=== PATIENT | female | born 1990 | race Caucasian/White ===

== ENCOUNTER → 2018-09-26 | Outpatient (CLI) | payer OTHER ==
[~2018-09-26] MED LIST: DOCU5LIQ PO; IBUP80TA PO; MAPA500T17 PO; MOM30SS PO; PRENTAB74 PO
--- NOTE | 2018-09-26 10:00 | REP ---
RIGHT ANKLE, FOUR VIEWS: Four views of the right ankle are performed. There is no acute fracture or dislocation. The ankle mortise is anatomic with no narrowing at the tibiotalar joint. A tiny spur is seen in the medial malleolus. There is mild posterior and inferior calcaneal spurring. IMPRESSION: Mild spurring as above. No acute abnormalities. Electronically Signed by Eric Burden MD 09/27/2018 10:37 A
== END ==
LOC: M WUC 09:18
PROVIDERS: ATTEND Physician Assistant
DX: M77.31 Calcaneal spur, right foot (principal)

== ENCOUNTER → 2020-02-17 | Outpatient (CLI) | payer OTHER ==
[~2020-02-17] MED LIST changes: +NEXP1IMP SC; +OMEP40CA97 PO
== END ==
LOC: M LABSMTC 08:24
PROVIDERS: ATTEND Anesthesiology
DX: Z01.818 Encounter for other preprocedural examination (principal); Z20.828 Contact with and (suspected) exposure to other viral communicable diseases
CPT/HCPCS: C9803; U0003

== ENCOUNTER 2020-02-22 14:11 | Day surgery (SDC) | payer OTHER ==
[~2020-02-22] VITALS: Ht 165.1 cm; Wt 121.6 kg
[~2020-02-22 14:11] MED LIST changes: +NS 1,000 ML IV ONE
[2020-02-22] MEDS ORDERED: LIDOCAINE 2% 100MG/5ML SDV (FOR ANES.) As Ordered ONE ×2 (15:26→15:52)
[2020-02-22] MEDS ORDERED: propofoL 200 MG/20 ML VIAL As Ordered ONE (15:26)
--- NOTE | 2020-02-22 16:17 | ROOR ---
Patient Name: Ana Maria Garrido Procedure Date: 02/22/2020 3:42 PM Date of : 1990 Age: 29 Room: [facility] Gender: Female Note Status: Finalized Procedure: Upper GI endoscopy Indications: Dyspepsia, Nausea with vomiting Providers: Jhony Holder MD Referring MD: KARLA Romano Requesting Provider: Medicines: Monitored Anesthesia Care Complications: No immediate complications. Procedure: Pre-Anesthesia Assessment: - Prior to the procedure, a History and Physical was performed, and patient medications and allergies were reviewed. The patient is competent. The risks and benefits of the procedure and the sedation options and risks were discussed with the patient. All questions were answered and informed consent was obtained. Patient identification and proposed procedure were verified by the physician, the nurse and the anesthesiologist in the procedure room. Mental Status Examination: alert and oriented. Airway Examination: normal oropharyngeal airway and neck mobility. Respiratory Examination: clear to auscultation. CV Examination: normal. Prophylactic Antibiotics: The patient does not require prophylactic antibiotics. Prior Anticoagulants: The patient has taken no previous anticoagulant or antiplatelet agents. ASA Grade Assessment: II - A patient with mild systemic disease. After reviewing the risks and benefits, the patient was deemed in satisfactory condition to undergo the procedure. The anesthesia plan was to use monitored anesthesia care (MAC). Immediately prior to administration of medications, the patient was re-assessed for adequacy to receive sedatives. The heart rate, respiratory rate, oxygen saturations, blood pressure, adequacy of pulmonary ventilation, and response to care were monitored throughout the procedure. The physical status of the patient was re-assessed after the procedure. The Endoscope was introduced through the mouth, and advanced to the second part of duodenum. The upper GI endoscopy was accomplished without difficulty. The patient tolerated the procedure well. Findings: LA Grade A (one or more mucosal breaks less than 5 mm, not extending between tops of 2 mucosal folds) esophagitis with no bleeding was found 36 cm from the incisors. Biopsies were taken with a cold forceps for histology. Verification of patient identification for the specimen was done by the physician and nurse using the patient's name, date and medical record number. Estimated blood loss was minimal. Scattered moderate inflammation characterized by erythema, friability and granularity was found in the gastric antrum. Biopsies were taken with a cold forceps for Helicobacter pylori testing. Patchy granular mucosa was found in the duodenal bulb. Biopsies for histology were taken with a cold forceps for evaluation of celiac disease. Impression: - LA Grade A reflux esophagitis. Rule out Greenfield's esophagus. Biopsied. - Gastritis. Biopsied. - Granular mucosa in the duodenal bulb. Biopsied. Recommendation: - Patient has a contact number available for emergencies. The signs and symptoms of potential delayed complications were discussed with the patient. Return to normal activities tomorrow. Written discharge instructions were provided to the patient. - High fiber diet. - Continue present medications. - Await pathology results. - Repeat upper endoscopy after studies are complete for surveillance based on pathology results. - Telephone GI clinic for pathology results in 2 weeks. - Return to primary care physician. Jhony Holder MD Jhony Holder MD 02/22/2020 4:17:15 PM Electronically signed by Jhony Holder MD Number of Addenda: 0 Note Initiated On: 02/22/2020 3:42 PM Estimated Blood Loss: Estimated blood loss: none.
[2020-02-22 16:22] VITALS: BP 143/78
== END 2020-02-22 16:24 | disposition home or self-care (01) ==
LOC: M OPP 14:11
PROVIDERS: ATTEND Internal Medicine Gastroenterology
DX: K21.00 Gastro-esophageal reflux disease with esophagitis, without bleeding (principal); K29.70 Gastritis, unspecified, without bleeding; K31.89 Other diseases of stomach and duodenum; R10.13 Epigastric pain; R11.2 Nausea with vomiting, unspecified

== ENCOUNTER → 2020-03-26 | Outpatient (CLI) | payer SELFPAY ==
[~2020-03-26] MED LIST changes: -NS 1,000 ML IV ONE
== END ==
LOC: M LABSMTC 11:03
PROVIDERS: ATTEND Pediatrics
DX: Z11.59 Encounter for screening for other viral diseases (principal)

== ENCOUNTER 2021-04-19 21:12 | Emergency (ER) | payer OTHER ==
[~2021-04-19] VITALS: Ht 165.1 cm; Wt 122.7 kg
[2021-04-19 21:12] VITALS: BP 154/98
[~2021-04-19 21:12] MED LIST changes: +OMEP40CA4 PO; -OMEP40CA97 PO
[2021-04-19] MEDS ORDERED: ACETAMINOPH W/CODEINE #3 TAB UD PO ONE (21:50)
== END 2021-04-19 22:14 | disposition home or self-care (01) ==
LOC: M ED 21:12
DX: K08.89 Other specified disorders of teeth and supporting structures (principal); Z79.899 Other long term (current) drug therapy; Z79.3 Long term (current) use of hormonal contraceptives

== ENCOUNTER → 2022-02-10 | Outpatient (CLI) | payer OTHER ==
[~2022-02-10] MED LIST changes: +ETON68IM SC; -NEXP1IMP SC
== END ==
LOC: M ADAMS 10:17
PROVIDERS: ATTEND Physician Assistant
DX: M72.2 Plantar fascial fibromatosis (principal); M79.672 Pain in left foot

== ENCOUNTER → 2022-08-05 | Outpatient (REF) | payer OTHER | LOC: M SFHCADAM 10:56 | PROVIDERS: ATTEND Physician Assistant | DX: J01.90 Acute sinusitis, unspecified (principal) ==

== ENCOUNTER → 2022-08-19 | Outpatient (CLI) | payer OTHER ==
[2022-08-19 15:10] LABS: HEMATOCRIT 40.6 % (36.0-47.0); HEMOGLOBIN 12.9 g/dl (12.0-15.5); MEAN CORPUSCULAR HEMOGLOBIN 28.4 pg (27.0-33.0); MEAN CORPUSCULAR HGB CONC 31.8 g/dl (32.0-36.5); MEAN CORPUSCULAR VOLUME 89.2 fl (80.0-96.0); PLATELET COUNT, AUTOMATED 263 10^3/uL (150-450); RED BLOOD COUNT 4.55 10^6/uL (4.00-5.40); WHITE BLOOD COUNT 10.2 10^3/uL (4.0-10.0)
[2022-08-19 16:06] LABS: HIV 1&2 SCREEN CENTAUR NEGATIVE (NEGATIVE)
[2022-08-19 16:15] LABS: HEPATITIS C VIRUS ABY INDEX < 0.0 INDEX (<0.8)
[2022-08-19 17:22] LABS: GC DNA AMPLIFICATION NEGATIVE (NEGATIVE)
== END ==
LOC: M PLALAB 11:47
PROVIDERS: ATTEND Obstetrics & Gynecology
DX: Z34.81 Encounter for supervision of other normal pregnancy, first trimester (principal)

== ENCOUNTER → 2022-08-31 | Outpatient (CLI) | payer OTHER ==
[2022-08-31 15:53] LABS: HEMATOCRIT 37.3 % (36.0-47.0); HEMOGLOBIN 12.1 g/dl (12.0-15.5); MEAN CORPUSCULAR HEMOGLOBIN 28.4 pg (27.0-33.0); MEAN CORPUSCULAR HGB CONC 32.4 g/dl (32.0-36.5); MEAN CORPUSCULAR VOLUME 87.6 fl (80.0-96.0); PLATELET COUNT, AUTOMATED 247 10^3/uL (150-450); RED BLOOD COUNT 4.26 10^6/uL (4.00-5.40); WHITE BLOOD COUNT 8.7 10^3/uL (4.0-10.0)
[2022-08-31 16:27] LABS: HIV 1&2 SCREEN NEGATIVE (NEGATIVE)
[2022-08-31 17:30] LABS: GC DNA AMPLIFICATION NEGATIVE (NEGATIVE)
== END ==
LOC: M PLALAB 13:01
PROVIDERS: ATTEND Obstetrics & Gynecology
DX: Z34.81 Encounter for supervision of other normal pregnancy, first trimester (principal)

== ENCOUNTER → 2022-10-30 | Outpatient (CLI) | payer OTHER | LOC: M WHC 12:15 | PROVIDERS: ATTEND Specialist | DX: Z34.82 Encounter for supervision of other normal pregnancy, second trimester (principal) ==

== ENCOUNTER → 2022-12-04 | Outpatient (CLI) | payer OTHER | LOC: M WHC 09:59 | PROVIDERS: ATTEND Advanced Practice Midwife | DX: Z34.82 Encounter for supervision of other normal pregnancy, second trimester (principal) ==

== ENCOUNTER → 2022-12-17 | Outpatient (CLI) | payer OTHER ==
[2022-12-17 17:30] LABS: HEMATOCRIT 34.2 % (36.0-47.0); HEMOGLOBIN 10.8 g/dl (12.0-15.5); MEAN CORPUSCULAR HEMOGLOBIN 27.8 pg (27.0-33.0); MEAN CORPUSCULAR HGB CONC 31.6 g/dl (32.0-36.5); MEAN CORPUSCULAR VOLUME 87.9 fl (80.0-96.0); PLATELET COUNT, AUTOMATED 263 10^3/uL (150-450); RED BLOOD COUNT 3.89 10^6/uL (4.00-5.40); WHITE BLOOD COUNT 10.6 10^3/uL (4.0-10.0)
[2022-12-17 17:42] LABS: TOTAL PROTEIN,RANDOM URINE 15.3 MG/DL (0.0-14.0)
[2022-12-17 17:49] LABS: ALBUMIN 2.6 G/DL (3.2-5.2); ALKALINE PHOSPHATASE 68 U/L (46-116); ALT/SGPT 14 U/L (7.0-40); AST/SGOT < 8 U/L (<34); BILIRUBIN,TOTAL 0.2 MG/DL (0.3-1.2); BLOOD UREA NITROGEN 7 MG/DL (9-23); CALCIUM LEVEL 9.8 MG/DL (8.5-10.1); CARBON DIOXIDE LEVEL 24 MMOL/L (20-31); CHLORIDE LEVEL 106 MMOL/L (98-107); GLOMERULAR FILTRATION RATE > 60.0 (>60); GLUCOSE, FASTING 88 MG/DL (60-100); POTASSIUM SERUM 3.3 MMOL/L (3.5-5.1); SODIUM LEVEL 141 MMOL/L (136-145); TOTAL PROTEIN 5.7 G/DL (5.7-8.2)
[2022-12-17 18:43] LABS: GC DNA AMPLIFICATION NEGATIVE (NEGATIVE)
== END ==
LOC: M PLALAB 14:41
PROVIDERS: ATTEND Obstetrics & Gynecology
DX: Z34.92 Encounter for supervision of normal pregnancy, unspecified, second trimester (principal)

== ENCOUNTER → 2022-12-25 | Outpatient (CLI) | payer OTHER | LOC: M PLALAB 11:13 | PROVIDERS: ATTEND Obstetrics & Gynecology | DX: Z34.92 Encounter for supervision of normal pregnancy, unspecified, second trimester (principal) ==

== ENCOUNTER → 2023-01-21 | Outpatient (CLI) | payer OTHER ==
[2023-01-21 15:57] LABS: HEMATOCRIT 34.7 % (36.0-47.0); HEMOGLOBIN 11.3 g/dl (12.0-15.5); MEAN CORPUSCULAR HEMOGLOBIN 28.6 pg (27.0-33.0); MEAN CORPUSCULAR HGB CONC 32.6 g/dl (32.0-36.5); MEAN CORPUSCULAR VOLUME 87.8 fl (80.0-96.0); PLATELET COUNT, AUTOMATED 250 10^3/uL (150-450); RED BLOOD COUNT 3.95 10^6/uL (4.00-5.40); WHITE BLOOD COUNT 8.1 10^3/uL (4.0-10.0)
[2023-01-21 16:25] LABS: TOTAL PROTEIN,RANDOM URINE 38.3 MG/DL (0.0-14.0); URIC ACID 6.4 MG/DL (3.1-7.8)
[2023-01-21 16:26] LABS: LDH LACTATE DEHYDROGENASE 150 U/L (120-246)
[2023-01-21 16:27] LABS: ALT/SGPT 14 U/L (7.0-40); AST/SGOT 14 U/L (<34); BILIRUBIN,TOTAL 0.4 MG/DL (0.3-1.2); CREATININE FOR GFR 0.63 MG/DL (0.55-1.30); GLOMERULAR FILTRATION RATE > 60.0 (>60)
[2023-01-21 16:40] LABS: CREATININE,RANDOM URINE 318.7 MG/DL
== END ==
LOC: M PLALAB 13:19
PROVIDERS: ATTEND Obstetrics & Gynecology
DX: O13.9 Gestational [pregnancy-induced] hypertension without significant proteinuria, unspecified trimester (principal)

== ENCOUNTER → 2023-02-22 | Outpatient (CLI) | payer OTHER | LOC: M WHC 12:03 | PROVIDERS: ATTEND Specialist | DX: O16.3 Unspecified maternal hypertension, third trimester (principal) ==

== ENCOUNTER → 2023-02-25 | Outpatient (REF) | payer OTHER | LOC: M PLALAB 14:27 | PROVIDERS: ATTEND Advanced Practice Midwife | DX: O16.3 Unspecified maternal hypertension, third trimester (principal) ==

== ENCOUNTER 2023-02-27 12:30 | Inpatient (IN) | payer OTHER ==
[~2023-02-27] VITALS: Ht 165.1 cm; Wt 151.2 kg
[2023-02-27] VITALS (39 sets, daily range): BP systolic 135–211; BP diastolic 68–129; O2SAT 97–99
[2023-02-27] MEDS ORDERED: PRENTAB9 PO (13:03)
[2023-02-27] MEDS ORDERED: METF500T13 PO (13:03)
[2023-02-27] MEDS ORDERED: LABE300T3 PO (13:03)
[2023-02-27] MEDS ORDERED: TUMS500C PO (13:04)
[2023-02-27] MEDS ORDERED: HOME MED LIST COMPLETE! XX SCH (13:05)
[2023-02-27] MEDS ORDERED: LACTATED RINGER'S 1000 ML IV STA (13:32)
[2023-02-27] MEDS ORDERED: LIDOCAINE 1% MDV 20ML VIAL INFIL PRN (13:35)
[2023-02-27] MEDS ORDERED: CARBOPROST TROMETHAMINE 250 MCG/ML AMP IM PRN (13:35)
[2023-02-27] MEDS ORDERED: OXYTOCIN DRIP 30 UNITS in IV 1 EA IV PRN (13:35)
[2023-02-27] MEDS ORDERED: TRANEXAMIC ACID INJection 1,000 MG in NS 100 ML IV PRN (13:35)
[2023-02-27 14:06] LABS: HEMATOCRIT 35.6 % (36.0-47.0); HEMOGLOBIN 11.4 g/dl (12.0-15.5); MEAN CORPUSCULAR HEMOGLOBIN 28.2 pg (27.0-33.0); MEAN CORPUSCULAR VOLUME 88.1 fl (80.0-96.0); PLATELET COUNT, AUTOMATED 251 10^3/uL (150-450); RED BLOOD COUNT 4.04 10^6/uL (4.00-5.40); WHITE BLOOD COUNT 7.7 10^3/uL (4.0-10.0)
[2023-02-27] MEDS ORDERED: LABETALOL 100MG/20ML VIAL IV ONE (14:15)
[2023-02-27] MEDS ORDERED: LABETALOL 100MG/20ML VIAL IV SCH (14:30)
[2023-02-27] MEDS: miSOPROStol 50MCG 1/2 TABLET SL SCH ×3 (14:31→22:58)
[2023-02-27 14:36] LABS: URIC ACID 6.6 MG/DL (3.1-7.8)
[2023-02-27 14:38] LABS: CREATININE,RANDOM URINE 179.5 MG/DL
[2023-02-27 14:38] LABS: LDH LACTATE DEHYDROGENASE 201 U/L (120-246)
[2023-02-27] MEDS: LABETALOL 100MG/20ML VIAL IV PRN ×3 (14:38→20:43)
[2023-02-27 14:39] LABS: ALT/SGPT 14 U/L (7.0-40); AST/SGOT 14 U/L (<34); BILIRUBIN,TOTAL 0.3 MG/DL (0.3-1.2); CREATININE FOR GFR 0.62 MG/DL (0.55-1.30); GLOMERULAR FILTRATION RATE > 60.0 (>60)
[2023-02-27 14:41] LABS: TOTAL PROTEIN,RANDOM URINE 481.9 MG/DL (0.0-14.0)
[2023-02-27] MEDS ORDERED: LABETALOL 100MG/20ML VIAL IV STA (15:15)
[2023-02-27] MEDS ORDERED: hydrALAZINE 20MG/ML 1ML VIAL IV STA (15:48)
[2023-02-27] MEDS ORDERED: MAGNESIUM *L&D* 4GM/100ML BAG (40MG/ML) IV ONE (15:50)
[2023-02-27] MEDS ORDERED: NIFEdipine 10 MG CAP PO STA (16:18)
[2023-02-27] MEDS: LR 1,000 ML IV SCH (16:22)
[2023-02-27] MEDS: MAG Sulf (OBGYN) 20GM/500ML 20,000 MG in IV 1 EA IV SCH (16:29)
[2023-02-27] MEDS ORDERED: hydrALAZINE 20MG/ML 1ML VIAL IV ONE ×2 (17:10→18:50)
[2023-02-27] MEDS: LABETALOL 100MG TAB PO SCH (19:07)
[2023-02-27] MEDS: metFORMIN (GLUCOPHAGE) 500MG TAB PO SCH (21:06)
[2023-02-28] VITALS (46 sets, daily range): BP systolic 117–188; BP diastolic 65–103; O2SAT 97–100
[2023-02-28] MEDS ORDERED: ACETAMINOPHEN 500 MG TAB PO ONE (01:10)
[2023-02-28] MEDS: LABETALOL 100MG/20ML VIAL IV PRN ×3 (01:20→05:19)
[2023-02-28] MEDS: MAG Sulf (OBGYN) 20GM/500ML 20,000 MG in IV 1 EA IV SCH ×2 (01:56→11:59)
[2023-02-28] MEDS: miSOPROStol 50MCG 1/2 TABLET SL SCH (03:00)
[2023-02-28] MEDS: LR 1,000 ML IV SCH ×2 (04:09→15:11)
[2023-02-28] MEDS ORDERED: OXYTOCIN DRIP 30 UNITS in IV 1 EA IV SCH ×2 (07:40→16:40)
[2023-02-28] MEDS: LABETALOL 100MG TAB PO SCH ×2 (07:52→20:36)
[2023-02-28] MEDS: ACETAMINOPHEN 500 MG TAB PO PRN (09:00)
[2023-02-28] MEDS ORDERED: PROMETHAZINE 25MG/ML 1ML VIAL IV ONE (14:35)
[2023-02-28] MEDS ORDERED: NALBUPHINE HCL 1MG/0.1ML (100MG/10ML) MDV IV ONE (14:35)
[2023-02-28] MEDS ORDERED: LACTATED RINGER'S 1000 ML IV STA (14:53)
[2023-02-28] MEDS ORDERED: LR 1,000 ML IV SCH (14:55)
[2023-02-28] MEDS ORDERED: ceFAZolin SOD 3 GM IV Place Holder IV ONE (14:55)
[2023-02-28] MEDS ORDERED: BICITRA 30ML SOLN UDC PO ONE (14:55)
[2023-02-28] MEDS ORDERED: AZITHROMYCIN INJ 500 MG, VIAL MATE ADAPTER 1 EACH in NS 250 ML IV ONE (14:55)
[2023-02-28] MEDS ORDERED: ceFAZolin SOD 1 GM in D5W MINI-BAG PLUS 50 ML IV ONE (15:00)
[2023-02-28] MEDS ORDERED: ceFAZolin SOD 2 GM in IV 1 EA IV ONE (15:00)
[2023-02-28] MEDS ORDERED: PHENYLephrine 500MCG 5ML (100MCG/ML) SYRINGE As Ordered ONE ×2 (15:03→15:49)
[2023-02-28] MEDS ORDERED: ONDANSETRON 4MG 2ML VIAL As Ordered ONE ×2 (15:03→17:20)
[2023-02-28] MEDS ORDERED: KETOROLAC 60MG 2ML VIAL As Ordered ONE (15:03)
[2023-02-28] MEDS ORDERED: OXYTOCIN INJ 10UNITS/ML 1ML VIAL As Ordered ONE (15:03)
[2023-02-28] MEDS ORDERED: MORPHINE PRES-FREE INJ 10 MG/10 ML VIAL As Ordered ONE (15:03)
[2023-02-28] MEDS ORDERED: METOCLOPRAMIDE INJ 10MG/2ML VIAL As Ordered ONE ×2 (15:29→17:07)
[2023-02-28 16:10] LABS: CORD GAS ABE A -7.4; CORD GAS ABE V -3.7; CORD GAS HCO3 A 23.3 MMOL/L; CORD GAS HCO3 V 25.1 MMOL/L; CORD GAS O2 SAT V 40.4 %; CORD GAS PCO2 A 70.1 mmHg; CORD GAS PCO2 V 59.7 mmHg; CORD GAS PH A 7.14 UNITS; CORD GAS PH V 7.241 UNITS; CORD GAS PO2 A 21.8 mmHg; CORD GAS PO2 V 20.9 mmHg; CORD GAS SBC A 17.1 MMOL/L; CORD GAS TCO2 A 25.5 MMOL/L; CORD GAS TCO2 V 26.9 MMOL/L
[2023-02-28] MEDS ORDERED: ANUSOL HC CREAM 30GM TOP PRN (16:40)
[2023-02-28] MEDS ORDERED: ACETAMINOPHEN 500 MG TAB PO PRN (16:40)
[2023-02-28] MEDS ORDERED: MORPHINE 4 MG/ML 1ML VIAL IV PRN (16:40)
[2023-02-28] MEDS ORDERED: RHOGAM 300MCG (1500IU) INJ IM SCH (16:40)
[2023-02-28] MEDS ORDERED: PERCOCET 5MG/325MG TAB PO PRN (16:40)
[2023-02-28] MEDS ORDERED: SIMETHICONE 80MG CHEW TAB PO PRN (16:40)
[2023-02-28] MEDS ORDERED: oxyCODONE 5MG TAB PO PRN (16:50)
[2023-02-28] MEDS ORDERED: **NOTE PATIENT COMMENT** MISC XX SCH (16:50)
[2023-02-28] MEDS ORDERED: METOCLOPRAMIDE INJ 10MG/2ML VIAL IV PRN (16:50)
[2023-02-28] MEDS ORDERED: MEPERIDINE 25 MG/ML 1ML VIAL IV PRN (16:50)
[2023-02-28] MEDS ORDERED: ONDANSETRON 4MG 2ML VIAL IV PRN ×2 (16:50→20:25)
[2023-02-28] MEDS ORDERED: diphenhydrAMINE 50MG/ML VIAL IV PRN (16:50)
[2023-02-28] MEDS: SLF 3 ML SYR IV SCH (16:50)
[2023-02-28] MEDS ORDERED: NALOXONE INJ 0.4MG/1ML VIAL IV PRN ×2 (16:50)
[2023-02-28] MEDS ORDERED: fentaNYL 100 MCG/2 ML INJECTION IV PRN (16:50)
[2023-02-28] MEDS ORDERED: HYDROMORPHONE HCL 0.5 MG/ 0.5 ML SYRINGE IV PRN (16:50)
[2023-02-28] MEDS ORDERED: COLA100C5 PO (16:51)
[2023-02-28] MEDS ORDERED: PERCOCET PO (16:51)
[2023-02-28] MEDS ORDERED: IBUP80TA PO (16:51)
[2023-02-28] MEDS ORDERED: OXYTOCIN 30UNITS IN 0.9% NaCl 500ML IV BAG As Ordered ONE (16:52)
[2023-02-28] MEDS ORDERED: diphenhydrAMINE 50MG/ML VIAL As Ordered ONE (17:41)
[2023-02-28] MEDS: metFORMIN (GLUCOPHAGE) 500MG TAB PO SCH (20:51)
[2023-02-28] MEDS: DOCUSATE SODIUM 100MG CAPSULE PO SCH (20:51)
[2023-02-28] MEDS: KETOROLAC 30 MG/ML 1ML VIAL IV SCH (22:12)
[2023-03-01] VITALS (17 sets, daily range): BP systolic 111–164; BP diastolic 61–92; TEMP 98.1; O2SAT 95–99
[2023-03-01] MEDS: MAG Sulf (OBGYN) 20GM/500ML 20,000 MG in IV 1 EA IV SCH (00:12)
[2023-03-01] MEDS: LR 1,000 ML IV SCH (00:12)
[2023-03-01] MEDS: SLF 3 ML SYR IV SCH ×2 (00:50→09:06)
[2023-03-01] MEDS: KETOROLAC 30 MG/ML 1ML VIAL IV SCH ×2 (04:08→10:13)
[2023-03-01 06:18] LABS: HEMATOCRIT 31.7 % (36.0-47.0); HEMOGLOBIN 10.1 g/dl (12.0-15.5); MEAN CORPUSCULAR HEMOGLOBIN 28.8 pg (27.0-33.0); MEAN CORPUSCULAR HGB CONC 31.9 g/dl (32.0-36.5); MEAN CORPUSCULAR VOLUME 90.3 fl (80.0-96.0); PLATELET COUNT, AUTOMATED 219 10^3/uL (150-450); RED BLOOD COUNT 3.51 10^6/uL (4.00-5.40); WHITE BLOOD COUNT 9.5 10^3/uL (4.0-10.0)
[2023-03-01] MEDS: PRENATAL VITAMINS CHEWABLE TABLET PO SCH (09:03)
[2023-03-01] MEDS: DOCUSATE SODIUM 100MG CAPSULE PO SCH ×2 (09:03→21:00)
[2023-03-01] MEDS: LABETALOL 100MG TAB PO SCH ×2 (09:05→21:02)
[2023-03-01 09:48] LABS: HEMATOCRIT 31.6 % (36.0-47.0); HEMOGLOBIN 10.1 g/dl (12.0-15.5); MEAN CORPUSCULAR VOLUME 90.8 fl (80.0-96.0); PLATELET COUNT, AUTOMATED 204 10^3/uL (150-450); RED BLOOD COUNT 3.48 10^6/uL (4.00-5.40); WHITE BLOOD COUNT 9.9 10^3/uL (4.0-10.0)
[2023-03-01 10:13] LABS: CREATININE FOR GFR 0.88 MG/DL (0.55-1.30); GLOMERULAR FILTRATION RATE > 60.0 (>60)
[2023-03-01] MEDS: ENOXAPARIN 40MG/0.4ML SYRINGE (J1650 PER 10MG) SC SCH ×2 (10:13→21:00)
[2023-03-01] MEDS: IBUPROFEN 800 MG TAB PO SCH (17:47)
[2023-03-01] MEDS: metFORMIN (GLUCOPHAGE) 500MG TAB PO SCH (21:01)
[2023-03-02] VITALS (8 sets, daily range): BP systolic 148–178; BP diastolic 70–100; O2SAT 97–99
[2023-03-02] MEDS: IBUPROFEN 800 MG TAB PO SCH ×3 (01:49→17:21)
[2023-03-02] MEDS: LABETALOL 100MG TAB PO SCH ×2 (08:44→17:58)
[2023-03-02] MEDS: PRENATAL VITAMINS CHEWABLE TABLET PO SCH (08:45)
[2023-03-02] MEDS: ENOXAPARIN 40MG/0.4ML SYRINGE (J1650 PER 10MG) SC SCH ×2 (08:45→20:47)
[2023-03-02] MEDS: PERCOCET 5MG/325MG TAB PO PRN ×2 (08:45→17:22)
[2023-03-02] MEDS: DOCUSATE SODIUM 100MG CAPSULE PO SCH ×2 (08:45→20:46)
[2023-03-02] MEDS ORDERED: INFLUENZA QUADRIVALENT PF VACCINE 0.5ML SYRINGE IM.IMMUN ONE (09:00)
[2023-03-02] MEDS ORDERED: MEASLES,MUMPS,RUBELLA VACCINE INJ (MMR-II) SC.IMMUN ONE (09:00)
[2023-03-02] MEDS: metFORMIN (GLUCOPHAGE) 500MG TAB PO SCH (20:46)
[2023-03-03] VITALS (9 sets, daily range): BP systolic 150–198; BP diastolic 90–110; O2SAT 97–98
[2023-03-03] MEDS: IBUPROFEN 800 MG TAB PO SCH ×3 (02:05→17:39)
[2023-03-03] MEDS: LABETALOL 100MG TAB PO SCH ×3 (02:06→17:39)
[2023-03-03] MEDS: DOCUSATE SODIUM 100MG CAPSULE PO SCH ×2 (09:00→20:55)
[2023-03-03] MEDS: PRENATAL VITAMINS CHEWABLE TABLET PO SCH (10:14)
[2023-03-03] MEDS: ENOXAPARIN 40MG/0.4ML SYRINGE (J1650 PER 10MG) SC SCH ×2 (10:15→21:14)
[2023-03-03] MEDS: NIFEdipine 30MG XL TAB PO SCH (11:40)
[2023-03-03] MEDS ORDERED: NIFEdipine 10 MG CAP PO STA ×2 (13:16→17:47)
[2023-03-03] MEDS: metFORMIN (GLUCOPHAGE) 500MG TAB PO SCH (20:55)
[2023-03-03] MEDS ORDERED: NIFEdipine 30MG XL TAB PO SCH (21:00)
[2023-03-04] VITALS (10 sets, daily range): BP systolic 158–182; BP diastolic 88–112; O2SAT 88–98
[2023-03-04] MEDS: LABETALOL 100MG TAB PO SCH ×3 (02:02→18:15)
[2023-03-04] MEDS: IBUPROFEN 800 MG TAB PO SCH ×3 (02:02→18:15)
[2023-03-04] MEDS: DOCUSATE SODIUM 100MG CAPSULE PO SCH ×2 (09:00→20:28)
[2023-03-04] MEDS: PRENATAL VITAMINS CHEWABLE TABLET PO SCH (09:18)
[2023-03-04] MEDS: NIFEdipine 30MG XL TAB PO SCH ×2 (09:19→20:27)
[2023-03-04] MEDS: ENOXAPARIN 40MG/0.4ML SYRINGE (J1650 PER 10MG) SC SCH ×2 (09:19→20:28)
[2023-03-04] MEDS: ACETAMINOPHEN 500 MG TAB PO PRN (11:25)
[2023-03-04] MEDS ORDERED: LABETALOL 100MG TAB PO ONE (18:50)
[2023-03-04] MEDS: metFORMIN (GLUCOPHAGE) 500MG TAB PO SCH (20:27)
[2023-03-05] VITALS (10 sets, daily range): BP systolic 138–182; BP diastolic 82–100; TEMP 97.7; O2SAT 97–99
[2023-03-05] MEDS: LABETALOL 200 MG TAB PO SCH ×3 (02:04→18:03)
[2023-03-05] MEDS: IBUPROFEN 800 MG TAB PO SCH ×3 (02:05→18:04)
[2023-03-05] MEDS ORDERED: NIFEdipine 10 MG CAP PO STA (03:04)
[2023-03-05] MEDS: DOCUSATE SODIUM 100MG CAPSULE PO SCH ×2 (09:00→21:00)
[2023-03-05] MEDS: NIFEdipine 30MG XL TAB PO SCH ×2 (09:36→21:24)
[2023-03-05] MEDS: PRENATAL VITAMINS CHEWABLE TABLET PO SCH (09:37)
[2023-03-05] MEDS: ENOXAPARIN 40MG/0.4ML SYRINGE (J1650 PER 10MG) SC SCH ×2 (09:38→21:24)
[2023-03-05] MEDS: metFORMIN (GLUCOPHAGE) 500MG TAB PO SCH (21:23)
[2023-03-06] MEDS: IBUPROFEN 800 MG TAB PO SCH ×2 (01:43→09:31)
[2023-03-06] MEDS: LABETALOL 200 MG TAB PO SCH ×2 (01:45→09:30)
[2023-03-06 02:00] VITALS: BP 151/86; O2SAT 98
[2023-03-06 06:00] VITALS: BP 132/86; O2SAT 98
[2023-03-06] MEDS: DOCUSATE SODIUM 100MG CAPSULE PO SCH ×2 (09:00→09:30)
[2023-03-06 09:30] VITALS: BP 125/85
[2023-03-06] MEDS: PRENATAL VITAMINS CHEWABLE TABLET PO SCH (09:30)
[2023-03-06] MEDS: NIFEdipine 30MG XL TAB PO SCH (09:30)
[2023-03-06] MEDS: ENOXAPARIN 40MG/0.4ML SYRINGE (J1650 PER 10MG) SC SCH (09:31)
[2023-03-06 10:00] VITALS: BP 120/85; O2SAT 98
[2023-03-06 14:00] VITALS: BP 133/72; O2SAT 98
[2023-03-06] MEDS ORDERED: NIFE1TAB52 PO ×2 (14:10)
[2023-03-06] MEDS ORDERED: LABE300T3 PO (14:12)
== END 2023-03-06 15:30 | disposition home or self-care (01) | DRG 540 ==
LOC: M LDI 12:30 → M OBS 03-01 15:15
PROVIDERS: ADMIT Obstetrics & Gynecology; ATTEND Obstetrics & Gynecology
PROC: 3E033VJ Introduction of Other Hormone into Peripheral Vein, Percutaneous Approach (ICD-10-PCS; 2023-02-27)
PROC: 10D00Z1 Extraction of Products of Conception, Low, Open Approach (ICD-10-PCS; principal; 2023-02-28 14:51)
DX: O14.14 Severe pre-eclampsia complicating childbirth (principal); E66.9 Obesity, unspecified; O24.425 Gestational diabetes mellitus in childbirth, controlled by oral hypoglycemic drugs; O99.214 Obesity complicating childbirth; Z3A.37 37 weeks gestation of pregnancy; Z79.84 Long term (current) use of oral hypoglycemic drugs; Z79.899 Other long term (current) drug therapy; O61.0 Failed medical induction of labor; Z37.0 Single live birth